=== PATIENT | male | born 1950 | race Caucasian/White ===

== ENCOUNTER 2017-09-22 03:45 | Emergency (ER) | payer OTHER, BC ==
[~2017-09-22] VITALS: Ht 185.4 cm; Wt 96.2 kg
[2017-09-22 03:45] VITALS: Ht 185.4 cm; Wt 96.2 kg
[2017-09-22] MEDS ORDERED: ACETAMINOPHEN 500 MG TAB PO STA (03:54)
[2017-09-22] MEDS ORDERED: SODIUM CHLORIDE 0.9% 1000ML 1,000 ML IV STA (03:54)
--- NOTE | 2017-09-22 04:02 | EMERGENCY ROOM VISIT NOTE ---
History First contact with patient: 03:48 Chief Complaint: FACIAL PAIN/INJURY Stated Complaint: FACIAL PAIN History of Present Illness The patient is a 66 year old male who presents to the Emergency Room of evaluation of rigors. Patient with 2 days of right sinus congestive symptoms though notes pain started after chewing on gum. Swelling of right face throughout yesterday gradually worsening. Notes improvement with OTC sinus medications. This evening awoke sweating and chills and shaking. Called EMS due to feeling so weak. No measured fevers, vomiting, sob, cp, syncope, abdo pain, urinary symptoms, diarrhea, rashes, leg swelling nor other symptoms. No recent abx. No medications prior to arrival. Review of Systems See HPI for pertinent positives & negatives. A total of 10 systems reviewed and were otherwise negative. Past Medical/Surgical History Medical: CAD s/p stenting, HTN, Vtach Surgical: ICD Placement Social History Smoking Status: Former Smoker Marital Status: Housing Status: lives with significant other Occupation Status: employed Current/Historical Medications Scheduled Apixaban (Eliquis), 5 MG PO BID Aspirin (Aspirin), 81 MG PO DAILY Clindamycin Hcl (Cleocin), 300 MG PO QID Levothyroxine Sodium (Levothyroxine Sodium), 1 TAB PO DAILY Rosuvastatin Calcium (Crestor), 40 MG PO DAILY [Bidoprolol], 5 MG PO DAILY [Dilasartan], 80 MG PO DAILY Physical Exam Vital Signs Date Time Temp Pulse Resp B/P (MAP) Pulse Ox O2 Delivery O2 Flow Rate FiO2 09/22/17 05:45 37.2 64 16 128/57 95 Room Air 09/22/17 04:53 37.8 67 20 127/54 95 Room Air 09/22/17 03:45 37.9 77 20 130/68 95 Room Air Physical Exam GENERAL: Patient is unwell appearing and in mild distress. Diaphoretic EYES: No scleral icterus, unremarkable pupils. ENT: Mucous membranes moist, no nasal congestion. FACE: Swelling and TTP over the right cheek without fluctuance/abscess. Moderate overlaying erythema. There is small puncture like wound inner right cheek. NECK: No masses appreciated, no meningismus, trachea is midline. RESPIRATORY: No dyspnea. Clear to auscultation and equal bilaterally. No wheeze , no rhonchi. CARDIOVASCULAR: Regular rate and rhythm. No murmurs, rubs, gallops appreciated. GASTROINTESTINAL: Abdomen soft, nontender, no peritonitis. Bowel sounds positive. No masses appreciated. BACK: No midline tenderness, no CVA tenderness EXTREMITIES: Normal motion all extremities, no cyanosis, no edema. NEUROLOGIC: Alert and oriented, no acute motor or sensory deficits, no focal weakness, cranial nerves grossly intact. SKIN: No rash, no jaundice, no diaphoresis. Medical Decision & Procedures Laboratory Results 09/22/17 03:55 Red Blood Count 4.15, Mean Corpuscular Volume 91.3, Mean Corpuscular Hemoglobin 31.3, Mean Corpuscular Hemoglobin Concent 34.3, Mean Platelet Volume 10.2, Neutrophils (%) (Auto) 68.8, Lymphocytes (%) (Auto) 19.0, Monocytes (%) (Auto) 10.7, Eosinophils (%) (Auto) 1.2, Basophils (%) (Auto) 0.0, Neutrophils # (Auto ) 6.88, Lymphocytes # (Auto) 1.90, Monocytes # (Auto) 1.07, Eosinophils # (Auto ) 0.12, Basophils # (Auto) 0.00 09/22/17 03:55 Test 09/22/17 03:55 09/22/17 05:35 White Blood Count 10.00 K/uL (4.8-10.8) Red Blood Count 4.15 M/uL (4.7-6.1) Hemoglobin 13.0 g/dL (14.0-18.0) Hematocrit 37.9 % (42-52) Mean Corpuscular Volume 91.3 fL (80-100) Mean Corpuscular Hemoglobin 31.3 pg (25-34) Mean Corpuscular Hemoglobin Concent 34.3 g/dl (32-36) Platelet Count 190 K/uL (130-400) Mean Platelet Volume 10.2 fL (7.4-10.4) Neutrophils (%) (Auto) 68.8 % Lymphocytes (%) (Auto) 19.0 % Monocytes (%) (Auto) 10.7 % Eosinophils (%) (Auto) 1.2 % Basophils (%) (Auto) 0.0 % Neutrophils # (Auto) 6.88 K/uL (1.4-6.5) Lymphocytes # (Auto) 1.90 K/uL (1.2-3.4) Monocytes # (Auto) 1.07 K/uL (0.11-0.59) Eosinophils # (Auto) 0.12 K/uL (0-0.5) Basophils # (Auto) 0.00 K/uL (0-0.2) RDW Standard Deviation 47.2 fL (36.4-46.3) RDW Coefficient of Variation 14.2 % (11.5-14.5) Immature Granulocyte % (Auto) 0.3 % Immature Granulocyte # (Auto) 0.03 K/uL (0.00-0.02) Anion Gap 6.0 mmol/L (3-11) Est Creatinine Clear Calc Drug Dose 72.8 ml/min Estimated GFR () 71.2 Estimated GFR (Non- 61.4 BUN/Creatinine Ratio 13.2 (10-20) Calcium Level 8.8 mg/dl (8.5-10.1) C-Reactive Protein 2.03 mg/dl (0-0.29) Procalcitonin < 0.05 ng/ml (0-0.5) Bedside Lactic Acid Venous 1.43 mmol/L (0.90-1.70) Medications Administered Medications (Trade) Dose Ordered Sig/Ayaka Route Start Time Stop Time Status Last Admin Dose Admin Sodium Chloride 1,000 ml @ 999 mls/hr Q1H1M STAT IV 09/22/17 03:54 09/22/17 04:54 DC 09/22/17 04:06 999 MLS/HR Acetaminophen (Tylenol Tab) 1,000 mg NOW STAT PO 09/22/17 03:54 09/22/17 03:55 DC 09/22/17 04:07 1,000 MG Clindamycin Phosphate 600 mg/ Dextrose 54 ml @ 100 mls/hr ONE ONCE IV 09/22/17 04:15 09/22/17 04:47 DC 09/22/17 04:29 100 MLS/HR Medical Decision Differential: Viral, Pharyngitis, Cellulitis, Pneumonia, Influenza, Meningitis, Sepsis, Bacteremia, UTI/Pyelonephritis, Endocrine, Toxicologic, amongst other pathologies entertained. 66 yr old male arrives to ed for evaluation of rigors/chills while up here helping his son move home after graduation. He is diaphoretic appearing and uncomfortable on arrival vastly improved with IV fluids and Tylenol. Cellulitis right cheek but no abscess nor crepitus felt. Either from small knick in cheek or could be dentition issue. Initial lactic acid elevated which improved with IV fluids. Procal is negative thus unlikely bacteremic. WBC OK. No respiratory nor bowel nor bladder issues. He looks much improved and is comfortable. Given IV clinda for dental coverage. Will continue Clinda as outpatient. Stressed PCP follow up as soon as possible which he states he can do. Stressed rest and hydration and reviewed symptoms requiring emergent RTED. Impression Primary Impression: Facial cellulitis Departure Information Dispostion Home / Self-Care Condition GOOD Prescriptions Clindamycin Hcl (CLEOCIN) 300 Mg Cap 300 MG PO QID for 10 Days, #40 CAP Prov: Edgardo Bernard M.D. 09/22/17 Patient Instructions ED Cellulitis Facial, My [facility]
[2017-09-22 04:14] LABS: EOS % 1.2 %; EOS ABS # 0.12 K/uL (0-0.5); HEMATOCRIT 37.9 % (42-52); IG# 0.03 K/uL (0.00-0.02); MEAN CELL VOLUME 91.3 fL (80-100); MEAN CORPUSCULAR HEMOGLOBIN 31.3 pg (25-34); MEAN CORPUSCULAR HGB CONC 34.3 g/dl (32-36); MEAN PLATELET VOLUME 10.2 fL (7.4-10.4); MONO % 10.7 %; MONO ABS # 1.07 K/uL (0.11-0.59); NEUT % 68.8 %; NEUT ABS # 6.88 K/uL (1.4-6.5); PLATELET COUNT 190 K/uL (130-400); RED CELL DISTRIBUTION WIDTH CV 14.2 % (11.5-14.5); RED CELL DISTRIBUTION WIDTH SD 47.2 fL (36.4-46.3)
[2017-09-22] MEDS ORDERED: CLINDAMYCIN IV 600 MG in DEXTROSE 5% 50ML 50 ML IV ONE (04:15)
[2017-09-22] MEDS ORDERED: APIX1TAB3 PO (04:19)
[2017-09-22] MEDS ORDERED: ASPI1TAB83 PO (04:21)
[2017-09-22] MEDS ORDERED: [UNRECOGNIZED DRUG - OTHER] PO (04:22)
[2017-09-22] MEDS ORDERED: LEVO137T3 PO (04:23)
[2017-09-22] MEDS ORDERED: ROSU40TA PO (04:24)
[2017-09-22] MEDS ORDERED: [UNRECOGNIZED DRUG - OTHER] PO (04:25)
[2017-09-22 04:31] LABS: CREATININE 1.22 mg/dl (0.60-1.40)
[2017-09-22 04:32] LABS: CALCIUM 8.8 mg/dl (8.5-10.1); POTASSIUM 4.3 mmol/L (3.5-5.1)
[2017-09-22] MEDS ORDERED: CLIN300C2 PO (05:44)
[2017-09-22 05:45] VITALS: BP 128/57; PULSE 64; TEMP 37.2; O2SAT 95
== END 2017-09-22 05:55 | disposition home or self-care (01) ==
LOC: EDBD 03:45 → C.EDA 03:46
DX: L03.211 Cellulitis of face (principal); I10 Essential (primary) hypertension; Z95.5 Presence of coronary angioplasty implant and graft; Z87.891 Personal history of nicotine dependence; Z79.01 Long term (current) use of anticoagulants; Z79.82 Long term (current) use of aspirin; Z79.899 Other long term (current) drug therapy